=== PATIENT | female | born 1970 | race African-American/Black ===

== ENCOUNTER 2018-09-22 14:34 | Outpatient (CLI) | payer OTHER ==
--- NOTE | 2018-09-22 19:58 | MRI ---
MRI CERVICAL SPINE WITHOUT CONTRAST: INDICATIONS: Cervical radiculopathy. TECHNIQUE: Multiplanar, multisequential imaging of the cervical spine obtained. FINDINGS: The cervical vertebrae maintain height. Moderate degenerative changes are noted. Moderate osteophyt es are seen from the anterior cervical vertebrae. There is loss of disk space with degenerative disk change at all levels of the cervical spine. C3-C4: Posterior disk bulge and spondylosis efface the anterior subarachnoid space. Asymmetric disk and uncinate hypertrophy on the right flatten the anterior thecal sac on the right and encroach into the right foramina. C4-C5: Disk bulge and spondylosis efface the anterior subarachnoid space. Right foraminal narrowing due to asymmetric disk bulge and uncinate hypertrophy. C5-C6: Disk bulge and spondylosis efface the anterior subarachnoid space. Left foraminal narrowing due to facet and uncinate hypertrophy. C6-C7: Disk bulge and spondylosis efface the anterior subarachnoid space and abut the cord. Evidenc e of mild left foraminal narrowing due to uncinate hypertrophy. Cord signal appears normally maintained. IMPRESSION: 1. Multilevel degenerative disk changes in the cervical spine from C3 through C7. 2. Posterior disk bulge and spondylosis at these level, as described above with foraminal stenosis a s noted. POS: [facility]
== END 2018-09-22 14:35 | disposition home or self-care (01) ==
LOC: TBSIIMAG 14:34
PROVIDERS: ATTEND Neurological Surgery
DX: M47.22 Other spondylosis with radiculopathy, cervical region (principal); M50.11 Cervical disc disorder with radiculopathy, high cervical region; M99.81 Other biomechanical lesions of cervical region
CPT/HCPCS: 72141

== ENCOUNTER 2018-10-16 08:15 | Day surgery (SDC) | payer OTHER ==
[2018-10-06 08:42] VITALS: BMI 22.6
[2018-10-16] MEDS ORDERED: CEFAZOLIN 2 GM/50 ML BAG ONE (11:39)
[2018-10-16 11:51] LABS: #Eosinphils 0.1 thou/uL (0.0-0.7); #Monocytes 0.3 thou/uL (0.11-0.59); %Basophils 0.4 % (0.0-1.0); %Eosinophils 2.1 % (0.0-10.0); %Lymphocytes 22.7 % (21.0-51.0); %Monocytes 7.5 % (0.0-10.0); %Neutrophils 67.3 % (42.0-75.0); Hemoglobin 12.9 g/dL (12.0-16.0); Mean Corpuscular HGB CONC 35.5 g/dL (32.0-36.0); Mean Corpuscular Hemoglobin 34.6 pg (27.0-31.0); Mean Corpuscular Volume 97.4 fL (78.0-98.0); Platelet Count 211 thou/uL (130-400); RBC Distribution Width 14.2 % (11.5-14.5); Red Blood Cell (RBC) Count 3.73 mill/uL (4.20-5.40); White Blood Cell (WBC) Count 4.4 thou/uL (4.8-10.8)
[2018-10-16 12:02] LABS: Anion Gap 11 mmol/L (10-20); BUN (Urea Nitrogen) 14 mg/dL (7.0-18.7); Calc. Creatinine Clearance 87 mL/min (70-130); Calcium 9.9 mg/dL (7.8-10.44); Carbon Dioxide 31 mmol/L (22-29); Chloride 100 mmol/L (98-107); Estimated GFR-MDRD Greater than 90; Glucose 84 mg/dL (70-105); Potassium 4.1 mmol/L (3.5-5.1); Sodium 138 mmol/L (136-145)
[2018-10-16] MEDS ORDERED: Fentanyl 100 MCG/2 ML VIAL ONE ×2 (13:13→14:58)
[2018-10-16] MEDS ORDERED: Sodium Chloride 0.9% 10 ML ONE (14:35)
--- NOTE | 2018-10-16 14:56 | OP ---
DATE OF PROCEDURE: 10/16/2018 SURGEON: Nithin Montanez M.D. DIVISION OPERATIONS MANAGER: Alexandre Kee PA-C. PROCEDURE: Anterior cervical discectomy C5-6 and C6-7, interbody arthrodesis, intravertebral biomech anical device, local morselized autograft, demineralized bone matrix, anterior titanium instrumentati on C5-6 and C6-7. PROCEDURE IN DETAIL: The patient was brought to the operating room and intubated. She was positione d supine with the head in modest extension on a gel-filled donut. Incision was made in the right pre cervical area and dissecting medial to the sternocleidomastoid muscle, identified the anterior cervic al spine and our level was confirmed by x-ray. We debrided anterior osteophytes, placed distraction between C5 and C7 and debrided the intravertebral disks at C5-C6 and C6-C7. Next, the bony endplates were decorticated for the purpose of arthrodesis and an appropriately-sized intravertebral biomechan ical PEEK device was brought into the field, filled with demineralized bone matrix, local morselized autograft, and tapped into place securely at C5-6 and C6-7. Next, an anterior plate was brought into the field and secured to C5, C6, and C7 using two 14 mm screws at each level. The wound was then ex tensively irrigated, immaculate hemostasis was secured. The wound was closed in anatomic layers.
[2018-10-16] MEDS ORDERED: Dexamethasone 20 MG/5 ML VIAL ONE (15:10)
[2018-10-16] MEDS ORDERED: PHENYLEPHRINE-NS 100 MCG/ML 10 ML SYRINGE ONE (15:10)
[2018-10-16] MEDS ORDERED: Ondansetron PF 4 MG/2 ML Vial ONE (15:10)
[2018-10-16] MEDS ORDERED: Glycopyrrolate 0.2 MG/ML 5 ML SYRINGE ONE (15:10)
[2018-10-16] MEDS ORDERED: Lidocaine 1% PF 5 ML VIAL ONE (15:10)
[2018-10-16] MEDS ORDERED: PROPOFOL 200 MG/20 ML VIAL ONE (15:10)
[2018-10-16] MEDS ORDERED: Ketorolac Tromethamine 30 MG/ML VIAL ONE (15:10)
[2018-10-16] MEDS ORDERED: HYDROcodone/Acetaminophen 5/325 mg Tablet ONE (16:48)
--- NOTE | 2018-10-22 21:12 | EKG ---
Test Reason : PREOP Blood Pressure : / mmHG Vent. Rate : 054 BPM Atrial Rate : 054 BPM P-R Int : 178 ms QRS Dur : 086 ms QT Int : 458 ms P-R-T Axes : 060 069 041 degrees QTc Int : 434 ms Sinus bradycardia Otherwise normal ECG When compared with ECG of 11-MAY-2012 03:33, Vent. rate has decreased BY 27 BPM QT has shortened Confirmed by SUSANNA ORTEGA (2) on 10/22/2018 9:12:13 PM Referred By: DAMIÁN Confirmed By:SUSANNA ORTEGA
== END 2018-10-16 17:16 | disposition home or self-care (01) ==
LOC: SDC 08:15
PROVIDERS: ATTEND Neurological Surgery
PROC: 0RG2070 Fusion of 2 or more Cervical Vertebral Joints with Autologous Tissue Substitute, Anterior Approach, Anterior Column, Open Approach (ICD-10-PCS; principal; 2018-10-16)
PROC: 0RG20A0 Fusion of 2 or more Cervical Vertebral Joints with Interbody Fusion Device, Anterior Approach, Anterior Column, Open Approach (ICD-10-PCS; principal; 2018-10-16)
PROC: 0RT30ZZ Resection of Cervical Vertebral Disc, Open Approach (ICD-10-PCS; principal; 2018-10-16)
DX: M47.812 Spondylosis without myelopathy or radiculopathy, cervical region (principal); I10 Essential (primary) hypertension; E78.5 Hyperlipidemia, unspecified; Z88.2 Allergy status to sulfonamides
CPT/HCPCS: 76001; 80048; 85025; 93005; 93010; 96374; C1713; C1776; J1100; J1885; J2001; J2405; J2704; J3010; J3490

== ENCOUNTER 2018-11-07 13:51 | Outpatient (CLI) | payer OTHER ==
--- NOTE | 2018-11-07 16:16 | RAD ---
THREE VIEWS OF THE CERVICAL SPINE: 11/07/18 COMPARISON: 07/27/18. HISTORY: Status post fusion. FINDINGS: Three views of the cervical spine shows the patient to be status post anterior fusion of C5 through C 7 with a plate and screws. Intervertebral disc spacers are seen in the intervening disc spaces. The v ertebral bodies demonstrate normal alignment without subluxation. Small osteophytes and intervertebra l disc space narrowing are seen in the upper cervical spine. No prevertebral soft tissue swelling is seen. IMPRESSION: Postsurgical changes of the lower cervical spine without evidence of complication. POS: [facility]
== END 2018-11-07 13:52 | disposition home or self-care (01) ==
LOC: TBSIIMAG 13:51
PROVIDERS: ATTEND Neurological Surgery
DX: M47.812 Spondylosis without myelopathy or radiculopathy, cervical region (principal); Z98.1 Arthrodesis status
CPT/HCPCS: 72040

== ENCOUNTER 2018-12-26 14:03 | Outpatient (CLI) | payer OTHER ==
--- NOTE | 2018-12-26 16:23 | RAD ---
CERVICAL SPINE RADIOGRAPHS: INDICATIONS: Follow up surgery. COMPARISON: 11/07/2018 FINDINGS: There are ACDFs spanning C5 through C7 with associated interbody bone cages that are unchanged in pos ition. There is mild anterolisthesis of C7 on T1, which is stable. Advanced disk degenerative disea se at C4-C5 and C3-C4 are similar appearing. Lung apices are clear. Lateral masses are symmetric. IMPRESSION: 1. Stable postoperative cervical spine. 2. Stable moderate cervical spondylosis. POS: [facility]
== END 2018-12-26 14:04 | disposition home or self-care (01) ==
LOC: TBSIIMAG 14:03
PROVIDERS: ATTEND Neurological Surgery
DX: M48.02 Spinal stenosis, cervical region (principal); M50.30 Other cervical disc degeneration, unspecified cervical region; M47.812 Spondylosis without myelopathy or radiculopathy, cervical region; Z98.1 Arthrodesis status
CPT/HCPCS: 72040

== ENCOUNTER 2019-11-14 23:20 | Emergency (ER) | payer OTHER | END 2019-11-15 00:49 | disposition home or self-care (01) | LOC: ERS 23:20 | DX: R56.9 Unspecified convulsions (principal); I10 Essential (primary) hypertension; E78.5 Hyperlipidemia, unspecified; F17.210 Nicotine dependence, cigarettes, uncomplicated | CPT/HCPCS: 99283 ==

== ENCOUNTER 2020-01-11 10:38 | Outpatient (CLI) | payer OTHER ==
--- NOTE | 2020-01-11 13:35 | ULT ---
ULTRASOUND OF THE LIVER WITH MOTA SCALE AND COLOR FLOW AND SPECTRAL DOPPLER IMAGING: HISTORY: Abnormal liver function tests. FINDINGS: The liver demonstrates homogeneous echotexture without focal mass or intrahepatic ductal dilatation. The spleen appears normal with a size of 11.9 cm in length. Multiple shadowing mobile thoracic spin e are seen without gallbladder wall thickening or pericholecystic fluid. The common duct measures 2- 3 mm in diameter. The right kidney is normal. No free fluid is seen in Morison's pouch. The pancre as is normal. There is normal flow and spectral waveforms in the hepatic, portal, and splenic vasculature. IMPRESSION: Cholelithiasis. POS: [facility]
== END 2020-01-11 10:39 | disposition home or self-care (01) ==
LOC: BICULT 10:38
PROVIDERS: ATTEND Physician Assistant Medical
DX: Z12.11 Encounter for screening for malignant neoplasm of colon (principal); R94.5 Abnormal results of liver function studies; K80.20 Calculus of gallbladder without cholecystitis without obstruction
CPT/HCPCS: 76705

== ENCOUNTER 2020-03-31 23:20 | Emergency (ER) | payer OTHER ==
[2020-03-31 23:45] LABS: #Eosinphils 0.1 thou/uL (0.0-0.7); #Lymphocytes 2.6 thou/uL (1.20-3.40); #Monocytes 0.7 thou/uL (0.11-0.59); #Neutrophils 3.8 thou/uL (1.40-6.50); %Basophils 0.5 % (0.0-1.0); %Lymphocytes 35.7 % (21.0-51.0); %Monocytes 9.1 % (0.0-10.0); %Neutrophils 52.8 % (42.0-75.0); Hemoglobin 12.6 g/dL (12.0-16.0); Mean Corpuscular HGB CONC 35.8 g/dL (32.0-36.0); Mean Corpuscular Hemoglobin 35.9 pg (27.0-31.0); Mean Platelet Volume 6.5 fL (7.4-10.4); Platelet Count 260 thou/uL (130-400); RBC Distribution Width 14.5 % (11.5-14.5); Red Blood Cell (RBC) Count 3.53 mill/uL (4.20-5.40); White Blood Cell (WBC) Count 7.2 thou/uL (4.8-10.8)
[2020-04-01 00:03] LABS: Amphetamine Not Detected (NotDetected); Barbiturates Screen Not Detected (NotDetected); Benzodiazepine Screen Not Detected (NotDetected); Cocaine Metabolite Screen Detected (NotDetected); Medtox Control Line Valid? VALID (VALID); Medtox Reader # READER 1; Methadone Not Detected (NotDetected); Methamphetamine Not Detected (NotDetected); Opiate Screen Not Detected (NotDetected); Oxycodone Screen Not Detected (NotDetected); Phencyclidine (PCP) Not Detected (NotDetected); THC/Cannabinoid Screen Detected (NotDetected); Tricyclic Screen Not Detected (NotDetected)
[2020-04-01 00:06] LABS: ALT (SGPT) 29 U/L (8-55); AST (SGOT) 41 U/L (5-34); Albumin 4.1 g/dL (3.5-5.0); Alcohol 142 mg/dL (Less than 10); Alkaline Phosphatase 85 U/L (40-110); Anion Gap 19 mmol/L (10-20); BUN (Urea Nitrogen) 13 mg/dL (9.8-20.1); Bilirubin, Total 0.9 mg/dL (0.2-1.2); Calc. Creatinine Clearance 0 mL/min (70-130); Calcium 8.5 mg/dL (7.8-10.44); Carbon Dioxide 20 mmol/L (22-29); Chloride 105 mmol/L (98-107); Estimated GFR-MDRD 85; Glucose 142 mg/dL (70-105); Potassium 3.2 mmol/L (3.5-5.1); Protein, Total 7.1 g/dL (6.0-8.3); Sodium 141 mmol/L (136-145)
[2020-04-01] MEDS ORDERED: Ondansetron ODT 8 MG TAB ONE (02:36)
== END 2020-04-01 02:53 | disposition home or self-care (01) ==
LOC: ERS 23:20
DX: F10.129 Alcohol abuse with intoxication, unspecified (principal); F14.10 Cocaine abuse, uncomplicated; Y90.6 Blood alcohol level of 120-199 mg/100 ml; I10 Essential (primary) hypertension; E78.5 Hyperlipidemia, unspecified; B19.20 Unspecified viral hepatitis C without hepatic coma; F17.290 Nicotine dependence, other tobacco product, uncomplicated
CPT/HCPCS: 36415; 51701; 80053; 80306; 80307; 85025; A4353; Q0162

== ENCOUNTER 2021-07-10 09:59 | Outpatient (CLI) | payer OTHER | END 2021-07-10 10:00 | disposition home or self-care (01) | LOC: ULT 09:59 | PROVIDERS: ATTEND Physician Assistant Medical | DX: B18.2 Chronic viral hepatitis C (principal); R16.1 Splenomegaly, not elsewhere classified; K80.20 Calculus of gallbladder without cholecystitis without obstruction; K76.9 Liver disease, unspecified | CPT/HCPCS: 76705 ==

== ENCOUNTER 2025-09-02 09:23 | Emergency (ER) | payer MEDICAID, OTHER ==
[2025-09-02 09:52] LABS: #Basophils Less than 0.03 10x3/uL (0.0-0.2); #Eosinophils 0.15 10x3/uL (0.0-0.7); #Monocytes 0.34 10x3/uL (0.11-0.59); #Neutrophils 4.88 10x3/uL (1.40-6.50); %Basophils 0.3 % (0.0-1.0); %Eosinophils 2.3 % (0.0-10.0); %Lymphocytes 15.9 % (21.0-51.0); %Monocytes 5.3 % (0.0-10.0); %Neutrophils 75.9 % (42.0-75.0); Hematocrit 34.5 % (36.0-47.0); Hemoglobin 12.2 g/dL (12.0-16.0); Mean Corpuscular Hemoglobin 30.9 pg (27.0-31.0); Mean Corpuscular Volume 87.3 fL (78.0-98.0); Platelet Count 167 10x3/uL (130-400); Red Blood Cell (RBC) Count 3.95 mill/uL (4.20-5.40); White Blood Cell (WBC) Count 6.43 10x3/uL (4.8-10.8)
[2025-09-02 10:12] LABS: ALT (SGPT) 12 U/L (Less than 34); AST (SGOT) 22 U/L (11-34); Albumin 4.5 g/dL (3.1-4.5); Alkaline Phosphatase 90 U/L (40-110); Anion Gap 12 mmol/L (10-20); BUN (Urea Nitrogen) 14 mg/dL (9.8-20.1); Bilirubin, Total 1.2 mg/dL (0.3-1.2); Calc. Creatinine Clearance 0 mL/min (70-130); Calcium 9.5 mg/dL (7.8-10.44); Carbon Dioxide 25 mmol/L (22-29); Chloride 106 mmol/L (98-107); Globulin 3.6 g/dL (2.4-3.5); Glucose 96 mg/dL (70-105); Lipase 15 U/L (8-78); Potassium 4.0 mmol/L (3.5-5.1); Sodium 139 mmol/L (136-145)
[2025-09-02 10:23] LABS: Bacteria/HPF None Seen HPF (None Seen); CAUTI Indications for Culture Pelvic or flank pain; Glucose, Urine (Dipstick) Normal (Negative); Leukocyte Negative Leu/uL (Negative); Protein, Urine (Dipstick) Negative (Neg-Trace); RBC/HPF 0-3 HPF (0-3); Specific Gravity, Urine 1.021 (1.002-1.036); WBC/HPF 0-3 HPF (0-3)
[2025-09-02 10:28] LABS: Cocaine Metabolite Screen Negative (Negative); THC/Cannabinoid Screen Negative (Negative); Tricyclic Screen Negative (Negative)
[2025-09-02 10:47] LABS: Urine Culture Reflex No No
== END 2025-09-02 12:22 | disposition home or self-care (01) ==
LOC: ERS 09:23
DX: J06.9 Acute upper respiratory infection, unspecified (principal); I10 Essential (primary) hypertension; F17.200 Nicotine dependence, unspecified, uncomplicated; Z79.899 Other long term (current) drug therapy
CPT/HCPCS: 36415; 71045; 80053; 80306; 80307; 81001; 83690; 85025; 87081; 87428; 87430

== ENCOUNTER 2025-09-23 12:01 | Emergency (ER) | payer MEDICAID, OTHER ==
[2025-09-23] MEDS ORDERED: Ketorolac Tromethamine 30 MG (1 mL) VIAL ONE (13:59)
[2025-09-23] MEDS ORDERED: Acetaminophen 500 MG TAB ONE (13:59)
[2025-09-23 14:31] LABS: #Basophils 0.03 10x3/uL (0.0-0.2); #Eosinophils 0.16 10x3/uL (0.0-0.7); #Monocytes 0.24 10x3/uL (0.11-0.59); #Neutrophils 3.42 10x3/uL (1.40-6.50); %Basophils 0.6 % (0.0-1.0); %Eosinophils 3.0 % (0.0-10.0); %Lymphocytes 27.2 % (21.0-51.0); %Monocytes 4.5 % (0.0-10.0); %Neutrophils 64.5 % (42.0-75.0); Hematocrit 34.4 % (36.0-47.0); Hemoglobin 12.4 g/dL (12.0-16.0); Mean Corpuscular Hemoglobin 30.2 pg (27.0-31.0); Mean Corpuscular Volume 83.7 fL (78.0-98.0); Platelet Count 162 10x3/uL (130-400); Red Blood Cell (RBC) Count 4.11 mill/uL (4.20-5.40); White Blood Cell (WBC) Count 5.30 10x3/uL (4.8-10.8)
[2025-09-23 14:37] LABS: Bacteria/HPF None Seen HPF (None Seen); CAUTI Indications for Culture Dysuria,urgency,freq; Glucose, Urine (Dipstick) Normal (Negative); Leukocyte Negative Leu/uL (Negative); Protein, Urine (Dipstick) Negative (Neg-Trace); RBC/HPF 0-3 HPF (0-3); Specific Gravity, Urine 1.018 (1.002-1.036); WBC/HPF 0-3 HPF (0-3)
[2025-09-23 14:38] LABS: Urine Culture Reflex No No
[2025-09-23 14:54] LABS: ALT (SGPT) 11 U/L (Less than 34); AST (SGOT) 27 U/L (11-34); Albumin 4.8 g/dL (3.1-4.5); Alkaline Phosphatase 98 U/L (40-110); Anion Gap 14 mmol/L (10-20); BUN (Urea Nitrogen) 10 mg/dL (9.8-20.1); Bilirubin, Total 1.1 mg/dL (0.3-1.2); Calc. Creatinine Clearance 0 mL/min (70-130); Calcium 10.1 mg/dL (7.8-10.44); Carbon Dioxide 26 mmol/L (22-29); Chloride 105 mmol/L (98-107); Globulin 4.1 g/dL (2.4-3.5); Glucose 87 mg/dL (70-105); Potassium 3.9 mmol/L (3.5-5.1); Sodium 141 mmol/L (136-145)
== END 2025-09-23 15:25 | disposition home or self-care (01) ==
LOC: ERS 12:01
DX: R10.A1 Flank pain, right side (principal); R51.9 Headache, unspecified; I10 Essential (primary) hypertension; F17.200 Nicotine dependence, unspecified, uncomplicated; Z79.899 Other long term (current) drug therapy
CPT/HCPCS: 80053; 81001; 85025; 96372; 99283; J1885

== ENCOUNTER 2025-10-16 10:57 | Outpatient (CLI) | payer OTHER | END 2025-10-16 10:58 | disposition home or self-care (01) | LOC: MRI 10:57 | PROVIDERS: ATTEND Student in an Organized Health Care Education/Training Program | DX: M89.9 Disorder of bone, unspecified (principal); S83.241A Other tear of medial meniscus, current injury, right knee, initial encounter ==

== ENCOUNTER 2025-11-23 12:28 | Emergency (ER) | payer MEDICAID | END 2025-11-23 15:25 | disposition home or self-care (01) | LOC: ERS 12:28 | DX: J10.1 Influenza due to other identified influenza virus with other respiratory manifestations (principal); Z79.899 Other long term (current) drug therapy | CPT/HCPCS: 87428; 99283 ==